=== PATIENT | male | born 1990 | race African-American/Black ===

== ENCOUNTER 2017-09-10 16:01 | Emergency (ER) | payer SELFPAY ==
[~2017-09-10] VITALS: Ht 182.9 cm; Wt 93.0 kg
[2017-09-10 19:14] VITALS: BP 147/92
[2017-09-10] MEDS ORDERED: KETOROLAC 30MG/ML VIAL IM ONE (19:15)
[2017-09-10] MEDS ORDERED: TRAMADOL 50MG TABLET PO ONE (21:00)
== END 2017-09-10 21:10 | disposition home or self-care (01) ==
LOC: ER 16:23
DX: D16.21 Benign neoplasm of long bones of right lower limb (principal); Z88.6 Allergy status to analgesic agent; Z88.8 Allergy status to other drugs, medicaments and biological substances
CPT/HCPCS: 73590; 93971; 96372; 99284; J1885; J7040; Z7610

== ENCOUNTER 2017-09-11 06:09 | Emergency (ER) | payer SELFPAY ==
[~2017-09-11] VITALS: Ht 175.3 cm; Wt 93.0 kg
[2017-09-11 06:39] VITALS: BP 138/97
== END 2017-09-11 09:15 | disposition left against medical advice (07) ==
LOC: ER 07:27
DX: M79.604 Pain in right leg (principal); Z53.21 Procedure and treatment not carried out due to patient leaving prior to being seen by health care provider